=== PATIENT | female | born 1990 | race Two or more races ===

== ENCOUNTER 2022-12-27 16:39 | Emergency (ER) | payer OTHER ==
[~2022-12-27] VITALS: Ht 162.6 cm; Wt 70.0 kg
[2022-12-27 16:42] VITALS: BP 136/82; PULSE 88; RESP 16; TEMP 98.2; O2SAT 98
== END 2022-12-27 16:57 | disposition home or self-care (01) ==
LOC: ER 16:39
DX: F19.10 Other psychoactive substance abuse, uncomplicated (principal)
CPT/HCPCS: 99283